=== PATIENT | female | born 1960 | race Caucasian/White ===

== ENCOUNTER → 2017-10-16 16:25 | Outpatient (CLI) | payer BC, SELFPAY ==
[2017-10-20 11:15] LABS: HPV Reflexed? NOT INDICATED
== END ==
PROVIDERS: Visit Provider Family Medicine
DX: Z01.419 Encounter for gynecological examination (general) (routine) without abnormal findings (principal)
CPT/HCPCS: 88175; G0145

== ENCOUNTER → 2017-11-22 08:59 | Outpatient (CLI) | payer BC, SELFPAY ==
--- NOTE | 2017-11-22 08:59 | DT_ITS ---
This patient was seen during an EMR downtime November 19, 2017 - November 26, 2017. This patient may have a combination of paper and electronic documentation or all paper documentation. All documentation is viewable within the e-chart portion of [employer] for each patient visit.
--- NOTE | 2017-11-22 09:05 | BD_ITS ---
STUDY: DUAL ENERGY X-RAY ABSORPTIOMETRY / DXA REASON FOR EXAM: Female, 57 years old. Osteoporosis screening. Patient is a smoker but exercises a lot. TECHNIQUE: Bone Mineral Density (BMD) measurements of lumbar spine and bilateral hips were obtained. COMPARISON: None. Baseline study. FINDINGS: Lumbar Spine (L1-L4): g/cm2 (1.077) / T-score (-0.9) / Z-score (0.1) The bone mineral density of the lumbar spine is normal with a low fracture risk. Left Femur Total: g/cm2 (0.904) / T-score (-0.8) / Z-score (-0.1) Left Femoral Neck: g/cm2 (0.910) / T-score (-0.9) / Z-score (0.2) The bone mineral density of the left femur is normal with a low fracture risk. Right Femur Total: g/cm2 (0.872) / T-score (-1.1) / Z-score (-0.3) Right Femoral Neck: g/cm2 (0.856) / T-score (-1.3) / Z-score (-0.2) The bone mineral density of the right femur is osteopenic with a moderate fracture risk. BD/Dexa Bone Density Study IMPRESSION: The patient is considered normal in the lumbar spine and left femur and osteopenic in the right femur as outlined below according to World Cl[employer] Organization (WHO) criteria with a low fracture risk in the lumbar spine and left femur and a moderate fracture risk in the right femur. See discussion above. Reference Information: The T-score is the number of standard deviations above or below the standard which is normal for young adults at their peak bone mineral density. The World Health Organization (WHO) interprets the T-scores as follows: Above -1 Normal bone density Between -1 and -2.5 Osteopenia Equal to / or below -2.5 Osteoporosis As a practical clinical guideline, osteopenia may be graded as follows: Mild -1 through -1.5 Moderate -1.6 through -2.0 Severe -2.1 through -2.4 The Z-score is the number of standard deviations above or below age-matched controls. A Z-score of less than -1.5 would be considered abnormal. References: 1. NIH Osteoporosis and Related Bone Diseases http://www.osteo.org 2. International Society for Clinical Densitometry http://www.iscd.org 3. National Osteoporosis Foundation http://www.nof.org Electronically Signed: Ifeanyi Hauser MD at 11:15 EDT , Service support ,
--- NOTE | 2017-11-22 09:06 | BI_ITS ---
MAMMOGRAPHY - BILATERAL SCREENING REASON FOR EXAM: Female, 57 years old. Routine annual screening examination. PERTINENT HISTORY: Non-contributory. TECHNIQUE: Digital bilateral breast mavis (3D mammographic acquisition) in the CC and MLO projections. 2-D mediolateral oblique (MLO) and craniocaudad (CC) views of both breasts were obtained. CAD: Full Field Digital Mammography with Computer Added Detection was performed. COMPARISON: Comparison is made with prior examination dated December 16, 2010. FINDINGS: Breast Composition: The breasts are heterogeneously dense, which may obscure small masses. There are no dominant masses or suspicious calcifications. No other significant abnormalities are identified. There has been no significant change since the prior study. BI/SCREENING MAMM (CAD), BILAT IMPRESSION: Stable bilateral screening mammogram. Yearly follow-up mammogram recommended. (A) ASSESSMENT CATEGORY: BIRADS Category 1: Negative. A letter regarding these results will be sent to the patient by the facility within 30 days. Approximately 10% of breast cancers are not detected by mammography. A normal mammogram should not delay biopsy of a clinically suspicious abnormality. [id number] Electronically Signed: Marcos Sidhu MD at 8:18 EDT Tel [phone], Service support ,
== END ==
PROVIDERS: PCP Family Medicine; Visit Provider Family Medicine
DX: Z00.00 Encounter for general adult medical examination without abnormal findings (principal); Z12.31 Encounter for screening mammogram for malignant neoplasm of breast
CPT/HCPCS: 77063; 77067; 77080

== ENCOUNTER → 2022-02-28 | Outpatient (CLI) | payer BC, SELFPAY ==
[2022-03-06 16:12] LABS: HPV APTIMA, High Risk Negative (Negative); HPV Reflexed? YES, CHARGE PATIENT
== END | disposition home or self-care (01) ==
PROVIDERS: PCP Family Medicine; Visit Provider Family Medicine
DX: Z12.4 Encounter for screening for malignant neoplasm of cervix (principal)
CPT/HCPCS: 87624; 88175; G0145